=== PATIENT | male | born 1990 | race Caucasian/White ===

== ENCOUNTER 2022-05-19 17:43 | Emergency (ER) | payer SELFPAY ==
[2022-05-19 18:07] VITALS: BP 144/70; PULSE 71; RESP 16; TEMP 36.9; O2SAT 99; BMI 21.7
[2022-05-19 19:34] VITALS: BP 122/75; PULSE 57; RESP 16; O2SAT 98
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
[2022-05-19 20:29] VITALS: BP 130/76; PULSE 61; RESP 16; O2SAT 98
[2022-05-19] MEDS: HYDROcodone-acetaminophen 5-325 mg Tablet 1 TAB PO (20:29)
[2022-05-19] MEDS: neomycin-poly-bacitracin oint 0.9 gm Pkt 1 APPLIC TOPICAL (20:29)
== END 2022-05-19 20:22 | disposition home or self-care (01) ==
PROVIDERS: Emergency Provider Emergency Medicine; PCP Family Medicine
DX: T23.032A Burn of unspecified degree of multiple left fingers (nail), not including thumb, initial encounter (principal); X12.XXXA Contact with other hot fluids, initial encounter; Y93.G3 Activity, cooking and baking
CPT/HCPCS: 99283